=== PATIENT | male | born 2000 | race Caucasian/White ===

== ENCOUNTER → 2021-12-11 | Outpatient (CLI) | payer BC ==
[~2021-12-11] MED LIST: HYDR1TAB94 PO; IBUP400 PO
[2021-12-11 18:11] LABS: BASOPHILS ABSOLUTE AUTO 0.03 K/mm3 (0.00-0.23); BASOPHILS PERCENT AUTO 0 % (0-2); EOSINOPHILS ABSOLUTE AUTO 0.03 K/mm3 (0.00-0.68); EOSINOPHILS PERCENT AUTO 0 % (0-6); Hematocrit 38.2 % (37.0-53.0); Hemoglobin 12.9 g/dL (13.5-17.5); IMMATURE GRAN ABSOLUTE AUTO 0.07 K/mm3 (0.00-0.10); IMMATURE GRAN PERCENT AUTO 0 % (0-1); LYMPHOCYTES ABSOLUTE AUTO 1.08 K/mm3 (0.84-5.20); LYMPHOCYTES PERCENT AUTO 7 % (21-46); MONOCYTES ABSOLUTE AUTO 0.68 K/mm3 (0.16-1.47); MONOCYTES PERCENT AUTO 4 % (4-13); Mean Corpuscular HGB 29.9 pg (26.0-34.0); Mean Corpuscular HGB Conc 33.8 g/dL (31.5-36.5); Mean Corpuscular Volume 89 fL (80-100); NEUTROPHILS ABSOLUTE AUTO 13.74 K/mm3 (1.96-9.15); NEUTROPHILS PERCENT AUTO 88 % (41-73); Platelet Count 294 K/mm3 (150-400); RDW Standard Deviation 39.1 fL (35.1-46.3); Red Blood Cell Count 4.31 M/mm3 (4.30-5.90); White Blood Cell Count 15.63 K/mm3 (4.00-11.30)
[2021-12-11 18:25] LABS: Alanine Aminotransfer (ALT/SGP 14 U/L (12-78); Albumin, Blood 3.9 g/dL (3.4-5.0); Albumin/Globulin Ratio 1.2 (0.8-1.8); Alk Phos 66 U/L (40-126); Anion Gap 10 mmol/L (6-16); Aspartate Aminotrans (AST/SGOT 13 U/L (12-37); Bilirubin, Total 0.8 mg/dL (0.1-1.0); Blood Urea Nitrogen 13 mg/dL (8-24); Bun/Creatinine Ratio 12.9 (12.0-20.0); CO2, Blood 27 mmol/L (21-32); Calcium, Blood 9.1 mg/dL (8.5-10.1); Chloride, Blood 106 mmol/L (98-108); Creatinine, Blood 1.01 mg/dL (0.60-1.20); Globulin, Blood 3.2 g/dL (2.2-4.0); Glomerular Filtration Rate >60 (60-); Glucose, Blood 118 mg/dL (70-99); Potassium, Blood 3.7 mmol/L (3.5-5.5); Sodium, Blood 143 mmol/L (136-145); Total Protein, Blood 7.1 g/dL (6.4-8.2)
== END | disposition home or self-care (01) ==
LOC: LAB 18:06 → LAB SHORT 18:06
PROVIDERS: Physician Assistant
DX: R10.31 Right lower quadrant pain (principal)
CPT/HCPCS: 80053; 85025

== ENCOUNTER 2024-01-03 18:05 | Emergency (ER) | payer BC ==
[~2024-01-03] VITALS: Ht 177.8 cm; Wt 65.8 kg
[2024-01-03 19:36] LABS: BASOPHILS ABSOLUTE AUTO 0.02 K/mm3 (0.00-0.23); BASOPHILS PERCENT AUTO 0 % (0-2); EOSINOPHILS ABSOLUTE AUTO 0.33 K/mm3 (0.00-0.68); EOSINOPHILS PERCENT AUTO 5 % (0-6); Hematocrit 39.4 % (37.0-53.0); Hemoglobin 13.5 g/dL (13.5-17.5); IMMATURE GRAN ABSOLUTE AUTO 0.01 K/mm3 (0.00-0.10); IMMATURE GRAN PERCENT AUTO 0 % (0-1); LYMPHOCYTES ABSOLUTE AUTO 1.38 K/mm3 (0.84-5.20); LYMPHOCYTES PERCENT AUTO 22 % (21-46); MONOCYTES ABSOLUTE AUTO 0.66 K/mm3 (0.16-1.47); MONOCYTES PERCENT AUTO 11 % (4-13); Mean Corpuscular HGB 31.2 pg (26.0-34.0); Mean Corpuscular HGB Conc 34.3 g/dL (31.5-36.5); Mean Corpuscular Volume 91 fL (80-100); Mean Platelet Volume 9.7 fL (9.1-12.4); NEUTROPHILS ABSOLUTE AUTO 3.89 K/mm3 (1.96-9.15); NEUTROPHILS PERCENT AUTO 62 % (41-73); Platelet Count 260 K/mm3 (150-400); RDW Coefficient Variation 12.2 % (11.7-14.2); RDW Standard Deviation 41.1 fL (35.1-46.3); Red Blood Cell Count 4.33 M/mm3 (4.30-5.90); White Blood Cell Count 6.29 K/mm3 (4.00-11.30)
[2024-01-03 19:54] LABS: Albumin, Blood 3.2 g/dL (3.4-5.0); Albumin/Globulin Ratio 0.8 (0.8-1.8); Bilirubin, Total 0.4 mg/dL (0.1-1.0); Bun/Creatinine Ratio 12.5 (12.0-20.0); Calcium, Blood 8.6 mg/dL (8.5-10.1); Creatinine, Blood 0.64 mg/dL (0.60-1.20); Potassium, Blood 3.4 mmol/L (3.5-5.5); Total Protein, Blood 7.2 g/dL (6.4-8.2)
[2024-01-03 20:09] LABS: Influenza A, PCR NEGATIVE (NEGATIVE); Influenza B, PCR NEGATIVE (NEGATIVE); Resp Syncytial Virus, PCR NEGATIVE (NEGATIVE); SARS-Cov-2 (COVID-19) PCR, MMC NEGATIVE (NEGATIVE)
[2024-01-03] MEDS ORDERED: Azithromycin 250 MG Tab PO ONE (20:40)
[2024-01-03] MEDS ORDERED: Ketorolac Tromethamine 15mg Vial IV ONE (20:40)
[2024-01-03] MEDS ORDERED: AZIT250 PO (20:42)
[2024-01-03 20:50] VITALS: BP 115/70
== END 2024-01-03 20:57 | disposition home or self-care (01) ==
LOC: ER 18:05
PROVIDERS: Student in an Organized Health Care Education/Training Program
DX: J18.0 Bronchopneumonia, unspecified organism (principal); G40.909 Epilepsy, unspecified, not intractable, without status epilepticus
CPT/HCPCS: 0241U; 71046; 80053; 85025; 96374; 99283-25; A9270; J1885

== ENCOUNTER 2024-03-10 07:21 | Inpatient (IN) | payer BC ==
[2024-03-10] VITALS (46 sets, daily range): BP systolic 69–123; BP diastolic 45–86
[~2024-03-10] VITALS: Ht 177.8 cm; Wt 71.3 kg
[~2024-03-10 07:21] MED LIST changes: +AZIT250 PO
[2024-03-10] MEDS ORDERED: Naloxone HCl 1MG / ML 2ML SYR ONE (07:33)
[2024-03-10] MEDS ORDERED: Naloxone HCl 1MG / ML 2ML SYR IV ONE (07:35)
[2024-03-10] MEDS ORDERED: Ondansetron HCl 2 MG / ML 2ML Vial ONE (07:38)
[2024-03-10] MEDS ORDERED: Ondansetron HCl 2 MG / ML 2ML Vial IV ONE (07:40)
[2024-03-10] MEDS ORDERED: Droperidol 5 mg/2 ml Vial IV ONE (07:50)
[2024-03-10 07:55] LABS: Calcium, Ionized (POC) 1.04 mmol/L (1.10-1.46); Chloride (POC) 100 mmol/L (98-108); Creatinine (POC) 2.5 mg/dL (0.8-1.3); Glucose (ISTAT POC) 139 mg/dL (70-99); Hemoglobin (POC) 11.9 g/dL (13.5-17.5); Potassium (POC) 4.7 mmol/L (3.5-5.5); Sodium (POC) 133 mmol/L (135-148); Total CO2 (POC) 22 mmol/L (21-32)
[2024-03-10 07:58] LABS: BASOPHILS ABSOLUTE AUTO 0.04 K/mm3 (0.00-0.23); BASOPHILS PERCENT AUTO 0 % (0-2); EOSINOPHILS ABSOLUTE AUTO 0.05 K/mm3 (0.00-0.68); EOSINOPHILS PERCENT AUTO 0 % (0-6); Hematocrit 34.1 % (37.0-53.0); Hemoglobin 11.3 g/dL (13.5-17.5); IMMATURE GRAN PERCENT AUTO 1 % (0-1); LYMPHOCYTES ABSOLUTE AUTO 1.43 K/mm3 (0.84-5.20); LYMPHOCYTES PERCENT AUTO 8 % (21-46); MONOCYTES ABSOLUTE AUTO 0.83 K/mm3 (0.16-1.47); MONOCYTES PERCENT AUTO 5 % (4-13); Mean Corpuscular HGB 30.7 pg (26.0-34.0); Mean Corpuscular HGB Conc 33.1 g/dL (31.5-36.5); Mean Corpuscular Volume 93 fL (80-100); Mean Platelet Volume 10.3 fL (9.1-12.4); NEUTROPHILS ABSOLUTE AUTO 15.76 K/mm3 (1.96-9.15); NEUTROPHILS PERCENT AUTO 87 % (41-73); Platelet Count 188 K/mm3 (150-400); RDW Coefficient Variation 12.5 % (11.7-14.2); Red Blood Cell Count 3.68 M/mm3 (4.30-5.90); White Blood Cell Count 18.21 K/mm3 (4.00-11.30)
[2024-03-10 08:09] LABS: PCO2 Arterial 43.8 mmHg (35-45); PO2 Arterial 46.7 mmHg (80-100); pH Blood Arterial 7.31 (7.35-7.45)
[2024-03-10] MEDS ORDERED: Etomidate 2MG / ML 10ML Vial IV ONE ×2 (08:15→17:15)
[2024-03-10] MEDS ORDERED: Rocuronium Bromide 10 MG/ML 5ML Injection IV ONE ×2 (08:15→17:15)
[2024-03-10 08:16] LABS: Magnesium, Blood 2.1 mg/dL (1.6-2.4)
[2024-03-10 08:17] LABS: Albumin, Blood 3.1 g/dL (3.4-5.0); Albumin/Globulin Ratio 1.2 (0.8-1.8); Bun/Creatinine Ratio 17.7 (12.0-20.0); Calcium, Blood 7.9 mg/dL (8.5-10.1); Creatinine, Blood 2.15 mg/dL (0.60-1.20); Globulin, Blood 2.6 g/dL (2.2-4.0); Potassium, Blood 4.9 mmol/L (3.5-5.5); Total Protein, Blood 5.7 g/dL (6.4-8.2)
[2024-03-10] MEDS ORDERED: CefTRIAXone Sodium 1,000 MG in NS 50 ML IV ONE (08:35)
[2024-03-10] MEDS ORDERED: Azithromycin 500 MG in NS 250 ML IV ONE ×2 (08:35→12:20)
[2024-03-10 08:55] LABS: PCO2 Arterial 41.3 mmHg (35-45); PO2 Arterial 77.3 mmHg (80-100); pH Blood Arterial 7.31 (7.35-7.45)
[2024-03-10 09:23] LABS: Source, Urine Straight Cath
[2024-03-10 09:26] LABS: Appearance, Urine Cloudy (Clear); Bilirubin, Urine Neg (Neg); Blood, Urine 5+ (Neg); Color, Urine Yellow (P-Yellow); Glucose Qualitative, Urine 1+ (Neg); Ketones, Urine 1+ (Neg); Leukocyte Esterase, Urine 1+ (Neg); Nitrite, Urine Neg (Neg); Protein, Urine 2+ (Neg); Urobilinogen, Urine NORM (Normal)
[2024-03-10 09:33] LABS: Calcium Oxalate Crystals Rare /hpf
[2024-03-10 09:38] LABS: Bacteria Many /hpf; Renal Epithelial Few /hpf (0-Rare); Squamous Epithelial Cells Rare /hpf (Few)
[2024-03-10 09:40] LABS: U Amphetamine Screen Not Detected; U Barbituate Screen Not Detected; U Benzodiazapine Screen Not Detected; U Buprenorphine Screen Not Detected; U Cannabinoids Screen Not Detected; U Cocaine Screen Not Detected; U Methadone Screen Not Detected; U Methamphetamine Screen Not Detected; U Opiates Screen Not Detected; U Oxycodone Screen Not Detected; U Phencyclidine Screen Not Detected
[2024-03-10] MEDS ORDERED: Midazolam HCl 1MG / ML 2ML Vial IV ONE ×5 (10:45→17:15)
[2024-03-10] MEDS ORDERED: Ondansetron HCl 2 MG / ML 2ML Vial IV PRN (10:50)
[2024-03-10] MEDS ORDERED: FentaNYL Citrate 50 MCG/ML 2 ML Injection IV PRN ×2 (10:50→14:15)
[2024-03-10] MEDS ORDERED: Lactated Ringer's 1,000 ML IV SCH (10:55)
[2024-03-10] MEDS ORDERED: propofoL 100 ML IV SCH (11:00)
[2024-03-10] MEDS ORDERED: Cefepime HCl 2,000 MG in NS 100 ML IV SCH (11:30)
[2024-03-10] MEDS ORDERED: levETIRAcetam 500 MG in NS 100 ML IV SCH (12:00)
[2024-03-10] MEDS ORDERED: Lactated Ringer's 1,000 ML IV ONE ×2 (12:20→13:20)
--- NOTE | 2024-03-10 12:50 | NUR ---
ADMISSION: Pt admitted to ICU 12 from ED. Upon arrival he was sedated with at RASS +2, attempting to sit up out of bed. PERRLA. Precedex placed on SB and propofol started with good effect. Bilateral wrist restraint in place. Additional IV obtained in right wrist. Antibiotics started after discussion with Dr cSott and luis. IV bolus intiated for hypotension. Dr Scott notified of BP trending down. Pt turned to a hard left turn to allow for postural drainage of right lung. OG placed to LIS. Red frothy sputum from ETT. ETT 8.0, 25 cm at lip. Right lung coarse throughout. Skin pale with trace edema in BLE and periorbital. Thready pulses in all extremities. Poor capillary refil and cool extremities. Temp prob lizama in place draining cloudy, yellow urine. prob lizama in place
[2024-03-10] MEDS ORDERED: Midazolam HCl 1MG / ML 2ML Vial ONE (13:12)
[2024-03-10] MEDS ORDERED: FentaNYL Citrate 50 MCG/ML 2 ML Injection ONE (13:23)
[2024-03-10] MEDS ORDERED: NS 1,000 ML IV SCH (13:30)
[2024-03-10] MEDS ORDERED: FentaNYL Citrate 50 MCG/ML 2 ML Injection IV ONE (13:30)
[2024-03-10] MEDS ORDERED: Midazolam HCl 1MG / ML 2ML Vial IV PRN (14:20)
[2024-03-10] MEDS ORDERED: PRAZ1 PO (15:27)
[2024-03-10] MEDS ORDERED: LEVE500 PO ×2 (15:28→18:12)
[2024-03-10] MEDS ORDERED: BUSPIRONE HCL30 M1 PO (15:28)
[2024-03-10] MEDS ORDERED: QUET200 PO (15:29)
[2024-03-10] MEDS ORDERED: CATAPRES0.1 MG PO (15:30)
[2024-03-10] MEDS ORDERED: DULO60 PO (15:33)
[2024-03-10] MEDS ORDERED: KEPPRA250 M1 PO (15:34)
[2024-03-10] MEDS ORDERED: AMPDEX30CR PO (15:34)
[2024-03-10] MEDS ORDERED: Heparin Sodium,Porcine 5,000 UNIT/0.5 ML SDV SC SCH (16:00)
[2024-03-10] MEDS ORDERED: Phenylephrine HCl 100 MCG/ML-NS 10MLSYR (1MG/10ML) IV ONE (17:15)
[2024-03-10] MEDS ORDERED: Hydrogen Peroxide 1.5 % Solution MT SCH (20:00)
--- NOTE | 2024-03-10 22:42 | NUR ---
ASSUMED CARE CARE WAS ASSUMED OF PT AT 1900, REPORT GIVEN BY ORACIO MAHER. PT INTUBATED AND SEDATED, PROPOFOL GTT INFUSING, SEE FLOWSHEET. PT AWAKENS EASILY TO VOICE, BUT BECOMES EASILY AGITATED ONCE AWAKE. PT DIFFICULT TO CONSOLE AND EVENTUALLY FALLS BACK ASLEEP. WHEN LEFT UNBOTHERED RASS -3, WITH ANY STIMULATION RASS +1. CPOT O AT SHIFT CHANGE. VENT SETTINGS AC/VC 16/450/8/30%, O2 SATS > 95%. CARDIAC MONITORING REFLECTS NSR, HR 80s. SBP 100s, MAP > 65. NS INFUSING AT 150 mL/HR. CVC TO R SUBCLAVIAN, DRESSING C/D/I. PIV TO RAC SL. TEMP BAILEY PATENT AND DRAINING TO GRAVITY. OG SET TO LIS, BROWN/CLEAR FLUID NOTED IN TUBING.
[2024-03-11] VITALS (46 sets, daily range): BP systolic 107–137; BP diastolic 63–97
[2024-03-11] MEDS ORDERED: D5W-1/2NS 1,000 ML IV SCH (01:25)
[2024-03-11 05:29] LABS: BASOPHILS ABSOLUTE AUTO 0.01 K/mm3 (0.00-0.23); BASOPHILS PERCENT AUTO 0 % (0-2); EOSINOPHILS ABSOLUTE AUTO 0.05 K/mm3 (0.00-0.68); EOSINOPHILS PERCENT AUTO 1 % (0-6); Hematocrit 30.3 % (37.0-53.0); Hemoglobin 10.4 g/dL (13.5-17.5); IMMATURE GRAN ABSOLUTE AUTO 0.03 K/mm3 (0.00-0.10); IMMATURE GRAN PERCENT AUTO 0 % (0-1); LYMPHOCYTES ABSOLUTE AUTO 1.19 K/mm3 (0.84-5.20); LYMPHOCYTES PERCENT AUTO 14 % (21-46); MONOCYTES ABSOLUTE AUTO 0.45 K/mm3 (0.16-1.47); MONOCYTES PERCENT AUTO 5 % (4-13); Mean Corpuscular HGB 30.8 pg (26.0-34.0); Mean Corpuscular HGB Conc 34.3 g/dL (31.5-36.5); Mean Corpuscular Volume 90 fL (80-100); Mean Platelet Volume 10.7 fL (9.1-12.4); NEUTROPHILS ABSOLUTE AUTO 7.08 K/mm3 (1.96-9.15); NEUTROPHILS PERCENT AUTO 80 % (41-73); Platelet Count 137 K/mm3 (150-400); RDW Coefficient Variation 12.6 % (11.7-14.2); RDW Standard Deviation 41.1 fL (35.1-46.3); Red Blood Cell Count 3.38 M/mm3 (4.30-5.90); White Blood Cell Count 8.81 K/mm3 (4.00-11.30)
[2024-03-11 05:54] LABS: Alanine Aminotransfer (ALT/SGP 217 U/L (12-78); Albumin, Blood 2.6 g/dL (3.4-5.0); Albumin/Globulin Ratio 1.1 (0.8-1.8); Alk Phos 62 U/L (50-136); Anion Gap 9 mmol/L (3-11); Aspartate Aminotrans (AST/SGOT 566 U/L (12-37); Bilirubin, Total 1.5 mg/dL (0.1-1.0); Blood Urea Nitrogen 14 mg/dL (8-24); Bun/Creatinine Ratio 17.3 (12.0-20.0); CO2, Blood 25 mmol/L (21-32); Calcium, Blood 7.9 mg/dL (8.5-10.1); Chloride, Blood 114 mmol/L (98-108); Creatinine, Blood 0.81 mg/dL (0.60-1.20); Globulin, Blood 2.3 g/dL (2.2-4.0); Glomerular Filtration Rate 128 (60-); Glucose, Blood 109 mg/dL (70-99); Potassium, Blood 3.5 mmol/L (3.5-5.5); Sodium, Blood 144 mmol/L (136-145); Total Protein, Blood 4.9 g/dL (6.4-8.2); Vancomycin, Random 4.8 ug/mL
--- NOTE | 2024-03-11 05:59 | NUR ---
SHIFT SUMMARY PT REMAINS INTUBATED AND SEDATED, PROPOFOL GTT INFUSING, SEE FLOWSHEET. PT'S AGITATION INCREASING T/O SHIFT; BITING DOWN ON ETT, PULLING AGAINST RESTRAINTS, ATTEMPTING TO SIT UP, KICKING LEGS IN BED. MEDICATED PT PER EMAR T/O SHIFT WELL INCREASE SEDATION. RASS -3, CPOT 0 AT THIS TIME. RESTRAINTS REMAIN IN PLACE. PT NOT FOLLOWING COMMANDS AT THIS TIME AND IS DIFFICULT AT TIMES TO CONSOLE WHEN AGITATED. VENT SETTINGS AC/VC 16/450/8/30%, O2 SATS > 95%. WHEN PT AGITATED O2 SATS DROP TO 80s WITH INCREASED HR. CARDIAC MONITORING REFLECTS NSR AT THIS TIME, HR 80s. SBP 110s. OG TO LIS, 200 BROWN/CLEAR OUTPUT THIS SHIFT. TEMP BAILEY PATENT AND DRAINING TO GRAVITY, 1800 mL URINE OUT THIS SHIFT. PT AFEBRILE. CVC TO R SUBCLAVIAN PATENT, SMALL AMOUNT OF BLOOD NOTED AT INSERTION SITE, DRESSING REMAINS C/D/I. PT'S CBG LOWER FROM PREVIOUS CHECKS THIS SHIFT SO PT SWITCHED TO D5 1/2 NS @ 100 FOR 1 BAG BY HOSPITALIST AND THEN PLAN TO RESTART NS @ 150.
[2024-03-11] MEDS ORDERED: Pantoprazole Sodium 40 MG Injection IV SCH (06:00)
--- NOTE | 2024-03-11 07:00 | NUR ---
ASSUME CARE: I have assume care of this patient.
[2024-03-11] MEDS ORDERED: Cefepime HCl 2,000 MG in NS 100 ML IV SCH (08:00)
[2024-03-11] MEDS ORDERED: NS 250 ML IV PRN (08:20)
[2024-03-11] MEDS ORDERED: Heparin Sodium,Porcine 5,000 UNIT/0.5 ML SDV SC SCH (09:00)
--- NOTE | 2024-03-11 10:38 | NUR ---
SEDATION VACATION: Pt able to track nurse and follow commands. Positive clonus and negative babinski in bilateral feet
[2024-03-11] MEDS ORDERED: Sertraline HCl 50 MG Tab PT SCH (11:00)
[2024-03-11] MEDS ORDERED: NS 1,000 ML IV SCH (12:00)
[2024-03-11] MEDS ORDERED: Vancomycin HCL 1,250 MG in NS 250 ML IV SCH (17:00)
--- NOTE | 2024-03-11 18:27 | NUR ---
SHIFT SUMMARY: Tube feeds initiated today. Blood sugars stable. Family at bedside throughout the day receiving updates. Vent settings AC/VC 16/450/8/30%. Precedex and propofol infusing for sedation. Two doses of PRN versed given this shift.
[2024-03-11] MEDS ORDERED: QUEtiapine Fumarate 50 MG TAB PT SCH (21:00)
[2024-03-11] MEDS ORDERED: levETIRAcetam 1,000 MG in NS 100 ML IV SCH (21:00)
--- NOTE | 2024-03-11 21:33 | NUR ---
ASSUMED CARE CARE WAS ASSUMED OF PT, REPORT GIVEN BY ORACIO MAHER. PT INTUBATED AND SEDATED, PROPOFOL AND PRECEDEX GTT INFUSING, SEE FLOWSHEET. RASS -3 WHEN LEFT UNBOTHERED BUT PT AWAKENS EASY TO VERBAL AND PHYSICAL STIMULI AND THEN WILL HAVE RASS +1, PT PULLS AGAINST RESTRAINTS WEAKLY AND MOVES HEAD BACK AND FORTH. PT CALM WHEN LEFT UNBOTHERED, CPOT 0-1. PT IN BILATERAL SOFT WRIST RESTRAINTS FOR SAFETY. VENT SETTINGS AC/VC 16/450/8/30%, PT SYCHRONOUS WITH VENT. O2 SATS > 95%. CARDIAC MONITORING REFLECTS NSR, HR 70s. SBP 120s. D5 1/2 NS INFUSING AT 100. CVC TO R SUBCLAVIAN PATENT, DRESSING C/D/I. TEMP BAILEY PATENT AND DRAINING TO GRAVITY, PT AFEBRILE. PIVOT 1.5 INFUSING THROUGH OG AT 10 mL/HR WITH 30 mL Q4HR FLUSHES.
[2024-03-12] VITALS (20 sets, daily range): BP systolic 125–143; BP diastolic 63–109
[2024-03-12 06:03] LABS: BASOPHILS ABSOLUTE AUTO 0.02 K/mm3 (0.00-0.23); BASOPHILS PERCENT AUTO 0 % (0-2); EOSINOPHILS ABSOLUTE AUTO 0.23 K/mm3 (0.00-0.68); EOSINOPHILS PERCENT AUTO 3 % (0-6); Hematocrit 29.8 % (37.0-53.0); Hemoglobin 10.4 g/dL (13.5-17.5); IMMATURE GRAN ABSOLUTE AUTO 0.02 K/mm3 (0.00-0.10); IMMATURE GRAN PERCENT AUTO 0 % (0-1); LYMPHOCYTES ABSOLUTE AUTO 0.87 K/mm3 (0.84-5.20); LYMPHOCYTES PERCENT AUTO 12 % (21-46); MONOCYTES ABSOLUTE AUTO 0.39 K/mm3 (0.16-1.47); MONOCYTES PERCENT AUTO 5 % (4-13); Mean Corpuscular HGB 30.4 pg (26.0-34.0); Mean Corpuscular HGB Conc 34.9 g/dL (31.5-36.5); Mean Corpuscular Volume 87 fL (80-100); Mean Platelet Volume 10.5 fL (9.1-12.4); NEUTROPHILS ABSOLUTE AUTO 5.78 K/mm3 (1.96-9.15); NEUTROPHILS PERCENT AUTO 79 % (41-73); Platelet Count 145 K/mm3 (150-400); RDW Coefficient Variation 12.4 % (11.7-14.2); RDW Standard Deviation 39.8 fL (35.1-46.3); Red Blood Cell Count 3.42 M/mm3 (4.30-5.90); White Blood Cell Count 7.31 K/mm3 (4.00-11.30)
--- NOTE | 2024-03-12 06:05 | NUR ---
SHIFT SUMMARY PT REMAINS INTUBATED AND SEDATED. PROPOFOL AND PRECEDEX GTT INFUSING, SEE FLOWSHEET. PT REMAINS UNABLE TO FOLLOW COMMANDS BUT AWAKENS TO VERBAL AND PHYSICAL STIMULI. DURING BEDBATH TONIGHT PT REMAINED CALM AND WHEN HE WOKE UP HE WAS ABLE TO MAKE EYE CONTACT WITH THIS RN FOR < 10 SECONDS. RASS -3 AT THIS TIME, CPOT 0. PT REMAINS IN BILATERAL SOFT WRIST RESTRAINTS FOR SAFETY. VENT SETTINGS UNCHANGED THIS SHIFT; AC/VC 16/450/8/30%. PT TOLERATING WELL, SYNCHRONOUS WITH VENTILATOR AND O2 SATS > 95%. CARDIAC MONITORING REFLECTS NSR, HR 70s AT THIS TIME, SBP 120s. CVC TO RIJ PATENT, DRESSING C/D/I. D5 1/2 NS INFUSING, BLOOD SUGARS STABLE THIS SHIFT. TF INFUSING AT 10 mL/HR WITH 30 mL Q4 FLUSHES THROUGH OG TUBE. RESIDUALS CHECKED THIS SHIFT PER ORDERS, 100 mL. TEMP BAILEY PATENT AND DRAINING TO GRAVITY, PT HAD 3000 mL OF URINE OUT THIS SHIFT. PT AFEBRILE.
[2024-03-12 06:18] LABS: Albumin, Blood 2.5 g/dL (3.4-5.0); Anion Gap 8 mmol/L (3-11); Blood Urea Nitrogen 5 mg/dL (8-24); Bun/Creatinine Ratio 8.2 (12.0-20.0); CO2, Blood 24 mmol/L (21-32); Calcium, Blood 7.8 mg/dL (8.5-10.1); Chloride, Blood 116 mmol/L (98-108); Creatinine, Blood 0.61 mg/dL (0.60-1.20); Glomerular Filtration Rate 139 (60-); Glucose, Blood 104 mg/dL (70-99); Phosphorus, Blood 1.9 mg/dL (2.5-4.9); Potassium, Blood 2.9 mmol/L (3.5-5.5); Sodium, Blood 145 mmol/L (136-145)
[2024-03-12] MEDS ORDERED: Potassium Phosphate Dibasic 30 MM in Dextrose 5% 500 ML IV ONE (06:55)
--- NOTE | 2024-03-12 07:52 | NUR ---
CARE OF PT ASSUMED AT 0700, BEDSIDE REPORT TAKEN. PT ON PROPOFOL AT 40MCG AND PRECEDEX AT 0.5MCG FOR VENT TOLERANCE. AC/VC 16/450/30%/8. PT INITIALLY RESTLESS, SLIGHTLY AGITATED, RASS +2, COUGHING AND GAGGING ON ETT. PT ABLE TO MAKE EYE CONTACT WHEN NAME SPOKEN, ABLE TO PRUNER HAND TO COMMAND. FINE TREMORS NOTED TO UPPER BODY AND ARMS WHEN AGITATED. VERSED 2MG GIVEN W GOOD EFFECT. TUBE FEEDS AT TRICKLE RATE OF 10. KPHOS 30MMOL INFUSING. PT'S GRANDFATHER AT BEDSIDE.
[2024-03-12 08:20] LABS: Vancomycin, Trough 16.7 ug/mL (5.0-10.0)
[2024-03-12] MEDS ORDERED: Bisacodyl 10 MG Supp PR PRN (09:25)
[2024-03-12] MEDS ORDERED: Magnesium Hydroxide Conc 10 ML UDC PT PRN (09:25)
[2024-03-12] MEDS ORDERED: Docusate Sodium 100 MG UDC PT PRN (09:25)
--- NOTE | 2024-03-12 09:45 | NUR ---
DR SEGURA IN TO SEE PT; FULL UPDATE GIVEN. PROPOFOL AND PRECEDEX PLACED ON STANDBY. PT RESTING ABLE TO NOD HEAD APPRORIATELY. RT PLACED PT ON SPONT BREATHING TRIAL 05/18
--- NOTE | 2024-03-12 10:05 | NUR ---
PT EXTUBATED TO 2L O2 VIA N/C AT [address] SEGURA. PT DROWSY BUT ABLE TO ANSWER QUESTIONS APPROPRIATELY. I SPOKE W PT PRIVATELY; PT DENIES USING ANY SUBSTANCES FOR OVER 4 MONTHS AND STATES HE WAS TREATED FOR PNEUMONIA ONE WEEK AGO AT AN URGENT CARE, PT STATES HE HAD BEEN VOMITING WELL.
--- NOTE | 2024-03-12 11:16 | NUR ---
pt oob to chair. sba to bathroom. pt had xlarge soft bm. Very unsteady gait. IS and Flutter valve given with instructions. Plan: Michael central line and alda.
[2024-03-12] MEDS ORDERED: Potassium Chloride 40 MEQ in NS 250 ML IV ONE (13:00)
[2024-03-12] MEDS ORDERED: Lactated Ringer's 1,000 ML IV SCH (15:20)
--- NOTE | 2024-03-12 15:21 | NUR ---
CALL PLACED TO DR SEGURA REGARDING 5100CC URINE OUTPUT THIS SHIFT. LR ORDERED AT 150CC/HR. CHEM TO BE REPEATED 1HR AFTER K+ INFUSED.
--- NOTE | 2024-03-12 17:48 | NUR ---
PT EXTUBATED EARLIER THIS SHIFT, SATS HAVE BEEN >95% ON RA T/O SHIFT. PT OOB TO CHAIR FOR SEVERAL HOURS TODAY. PT USING IS/FLUTTER QHR. POOR APPETITE. PT'S U/O HAS BEEN OVER 5L TODAY; LR STARTED AT 150CC/HR. CHEM TO BE REPEATED. LEO MORGAN.
[2024-03-12] MEDS ORDERED: Nicotine 21 MG PATCH TOP SCH (18:00)
[2024-03-12 18:48] LABS: Bun/Creatinine Ratio 6.4 (12.0-20.0); Calcium, Blood 8.4 mg/dL (8.5-10.1); Creatinine, Blood 0.62 mg/dL (0.60-1.20); Magnesium, Blood 1.9 mg/dL (1.6-2.4); Phosphorus, Blood 2.8 mg/dL (2.5-4.9); Potassium, Blood 3.3 mmol/L (3.5-5.5)
[2024-03-12] MEDS ORDERED: Potassium Chloride 20 MEQ TabCR PO ONE ×2 (19:40→22:00)
[2024-03-12] MEDS ORDERED: DULoxetine HCL 60 MG Capsule DR PO SCH (21:00)
[2024-03-12] MEDS ORDERED: BusPIRone HCl 5 MG Tab PO SCH (21:00)
--- NOTE | 2024-03-12 21:00 | NUR ---
ASSUMED CARE CARE WAS ASSUMED OF PT AT 1900, REPORT GIVEN BY RADHA MAHER. PT A/O X4, ABLE TO ANSWER QUESTIONS APPROPRIATELY AND USE CALL LIGHT APPROPRIATELY. PT MILDY ANXIOUS, BUT IS COOPERATIVE WITH CARE. PT ON RA, O2 SATS > 95%. CARDIAC MONITORING REFLECTS NSR, HR 80s. SBP 130s. LR INFUSING PER EMAR. CVC TO R SUBCLAVIAN PATENT, PLAN TO REMOVE THIS SHIFT D/T NO LONGER NEEDED. PIV TO JAMES AND RFA, SL. PT ABLE TO USE URINAL AND REPOSITION INDEPENDENTLY.
[2024-03-12] MEDS ORDERED: QUEtiapine Fumarate 200 MG Tab PO ONE (22:35)
[2024-03-12] MEDS ORDERED: QUEtiapine Fumarate 50 MG TAB PO ONE (23:00)
[2024-03-13] VITALS (7 sets, daily range): BP systolic 122–144; BP diastolic 75–105
[2024-03-13 03:12] LABS: BASOPHILS ABSOLUTE AUTO 0.02 K/mm3 (0.00-0.23); BASOPHILS PERCENT AUTO 0 % (0-2); EOSINOPHILS ABSOLUTE AUTO 0.13 K/mm3 (0.00-0.68); EOSINOPHILS PERCENT AUTO 2 % (0-6); Hematocrit 31.6 % (37.0-53.0); Hemoglobin 11.1 g/dL (13.5-17.5); IMMATURE GRAN ABSOLUTE AUTO 0.03 K/mm3 (0.00-0.10); IMMATURE GRAN PERCENT AUTO 0 % (0-1); LYMPHOCYTES ABSOLUTE AUTO 1.57 K/mm3 (0.84-5.20); LYMPHOCYTES PERCENT AUTO 20 % (21-46); MONOCYTES ABSOLUTE AUTO 0.64 K/mm3 (0.16-1.47); MONOCYTES PERCENT AUTO 8 % (4-13); Mean Corpuscular HGB 30.3 pg (26.0-34.0); Mean Corpuscular HGB Conc 35.1 g/dL (31.5-36.5); Mean Corpuscular Volume 86 fL (80-100); NEUTROPHILS ABSOLUTE AUTO 5.45 K/mm3 (1.96-9.15); NEUTROPHILS PERCENT AUTO 69 % (41-73); Platelet Count 182 K/mm3 (150-400); RDW Coefficient Variation 12.4 % (11.7-14.2); Red Blood Cell Count 3.66 M/mm3 (4.30-5.90); White Blood Cell Count 7.84 K/mm3 (4.00-11.30)
[2024-03-13 03:28] LABS: Anion Gap 9 mmol/L (3-11); Blood Urea Nitrogen 3 mg/dL (8-24); Bun/Creatinine Ratio 5.6 (12.0-20.0); CO2, Blood 25 mmol/L (21-32); Calcium, Blood 8.3 mg/dL (8.5-10.1); Chloride, Blood 114 mmol/L (98-108); Creatinine, Blood 0.54 mg/dL (0.60-1.20); Glomerular Filtration Rate 145 (60-); Glucose, Blood 93 mg/dL (70-99); Phosphorus, Blood 2.6 mg/dL (2.5-4.9); Potassium, Blood 3.5 mmol/L (3.5-5.5); Sodium, Blood 144 mmol/L (136-145)
--- NOTE | 2024-03-13 05:13 | NUR ---
SHIFT SUMMARY PT REMAINS A/O X4, NO ACUTE CHANGES THIS SHIFT. PT SBA TO BATHROOM. PT REMAINS ON RA, O2 SATS > 95%. CARDIAC MONITORING REFLECTS NSR, HR 80s. SBP 130s. PT'S HR WILL TACHY TO 130s WITH ACTIVITY/GETTING UP TO USE URINAL INDEPENDENTLY. PT HAS BEEN ABLE TO INDEPENDENTLY REPOSITION. CVC TO R SUBCLAVIAN REMOVED THIS SHIFT, DRESSING C/D/I WITH NO COMPLICATIONS. PT TOLERATED WELL. PT TOLERATING PO INTAKE. LR INFUSING @ 150 mL/HR. NS TKO INFUSING.
[2024-03-13 08:24] LABS: Vancomycin, Trough 15.9 ug/mL (5.0-10.0)
[2024-03-13] MEDS ORDERED: Thiamine HCl 100 MG Tab PT SCH (09:00)
--- NOTE | 2024-03-13 09:24 | NUR ---
CARE OF PT ASSUMED AT 0700. PT AWAKE AND ALERT, DENIES C/P PAIN/SOB. SATS 97% ON RA. PT SBA TO SHOWER THIS AM. LR AT 150CC/HR. DR HOBBS IN TO SEE PT THIS AM. PT NOW MEDICAL STATUS W/O TELE. PT'S FATHER AND GRANDFATHER AT BEDSIDE.
--- NOTE | 2024-03-13 10:43 | NUR ---
"Spiritual Care | Pt. request Pt. is awake in bed and welcomes my visit. Pt. is young, and Pt. is pleasant. Facilitate a life review and listen with interest and empathy. considered briefly matters of gibson and belief. Pt. verbalized that gibson has not been a present part of his life but he respected his families beliefs. Pt. displayed evidence of awareness, engagement, and verbalized of a family history of heart disease. Pt. verbalized gratitude for the spiritual care visit and welcomed this highway maintenance supervisor to return."
[2024-03-13] MEDS ORDERED: Potassium Chloride 20 MEQ TabCR PO ONE (10:50)
[2024-03-13 11:31] LABS: Bun/Creatinine Ratio 7.5 (12.0-20.0); Creatinine, Blood 0.53 mg/dL (0.60-1.20); Potassium, Blood 3.8 mmol/L (3.5-5.5)
[2024-03-13 11:51] LABS: Source, Urine Clean Catch
[2024-03-13 12:12] LABS: Bilirubin, Urine Neg (Neg); Blood, Urine Neg (Neg); Glucose Qualitative, Urine Neg (Neg); Ketones, Urine 2+ (Neg); Leukocyte Esterase, Urine Neg (Neg); Nitrite, Urine Neg (Neg); Protein, Urine Neg (Neg); Urobilinogen, Urine NORM (Normal)
[2024-03-13 12:14] LABS: Appearance, Urine Clear (Clear); Color, Urine Yellow (P-Yellow)
[2024-03-13 12:22] LABS: Creatinine, Urine Random 23.1 mg/dL (27.00-270.00); Potassium, Urine, Random 33.6 mmol/L (12.0-75.0)
--- NOTE | 2024-03-13 14:04 | NUR ---
REPORT GIVEN TO [facility] RN. PT TRANSFERED TO [facility] VIA W/C IN STABLE CONDITION.
[2024-03-13] MEDS ORDERED: Ketorolac Tromethamine 15mg Vial IV PRN (18:10)
--- NOTE | 2024-03-13 19:40 | NUR ---
SHIFT SUMMARY PATIENT ARRIVED TO UNIT AROUND 1415. AOX4 AND COOPERATIVE WITH CARE. HE DOES C/O SOME BACK PAIN AND REPORTS FALLING TWICE AT HOME. CALL PLACED TO DR HOBBS, TORADOL ORDERED FOR BACK PAIN. PATIENT UP AD AYANA IN ROOM TO BATHROOM, STRICT I&OS. POOR APPETITE. BED IN LOW POSITION, CALL LIGHT IN REACH.
[2024-03-13] MEDS ORDERED: QUEtiapine Fumarate 200 MG Tab PO SCH (21:00)
[2024-03-14] MEDS ORDERED: Gabapentin 300 MG Cap PO PRN (01:50)
[2024-03-14 04:56] VITALS: BP 133/87
[2024-03-14 05:23] LABS: BASOPHILS ABSOLUTE AUTO 0.01 K/mm3 (0.00-0.23); BASOPHILS PERCENT AUTO 0 % (0-2); EOSINOPHILS ABSOLUTE AUTO 0.28 K/mm3 (0.00-0.68); EOSINOPHILS PERCENT AUTO 5 % (0-6); Hematocrit 33.6 % (37.0-53.0); Hemoglobin 11.8 g/dL (13.5-17.5); IMMATURE GRAN ABSOLUTE AUTO 0.02 K/mm3 (0.00-0.10); IMMATURE GRAN PERCENT AUTO 0 % (0-1); LYMPHOCYTES ABSOLUTE AUTO 1.63 K/mm3 (0.84-5.20); LYMPHOCYTES PERCENT AUTO 27 % (21-46); MONOCYTES ABSOLUTE AUTO 0.75 K/mm3 (0.16-1.47); MONOCYTES PERCENT AUTO 12 % (4-13); Mean Corpuscular HGB 30.6 pg (26.0-34.0); Mean Corpuscular HGB Conc 35.1 g/dL (31.5-36.5); Mean Corpuscular Volume 87 fL (80-100); Mean Platelet Volume 9.7 fL (9.1-12.4); NEUTROPHILS ABSOLUTE AUTO 3.39 K/mm3 (1.96-9.15); NEUTROPHILS PERCENT AUTO 56 % (41-73); Platelet Count 202 K/mm3 (150-400); RDW Coefficient Variation 12.7 % (11.7-14.2); RDW Standard Deviation 39.5 fL (35.1-46.3); Red Blood Cell Count 3.86 M/mm3 (4.30-5.90); White Blood Cell Count 6.08 K/mm3 (4.00-11.30)
[2024-03-14 05:39] LABS: Albumin, Blood 3.3 g/dL (3.4-5.0); Anion Gap 11 mmol/L (3-11); Blood Urea Nitrogen 7 mg/dL (8-24); Bun/Creatinine Ratio 12.6 (12.0-20.0); CO2, Blood 22 mmol/L (21-32); Calcium, Blood 8.8 mg/dL (8.5-10.1); Chloride, Blood 114 mmol/L (98-108); Creatinine, Blood 0.55 mg/dL (0.60-1.20); Glomerular Filtration Rate 144 (60-); Glucose, Blood 96 mg/dL (70-99); Potassium, Blood 3.5 mmol/L (3.5-5.5); Sodium, Blood 143 mmol/L (136-145)
--- NOTE | 2024-03-14 06:15 | NUR ---
vitals stable overnight. pt requested gabapentin for leg and back pain, stated he takes this at home. MD was notifed and new order recieved. See MAr. no confusion noted overnight. pt makes needs known.
[2024-03-14 07:51] VITALS: BP 137/90
[2024-03-14 15:32] VITALS: BP 145/101
[2024-03-14 15:37] VITALS: BP 140/93
[2024-03-14 19:10] VITALS: BP 139/97
--- NOTE | 2024-03-14 19:36 | NUR ---
SHIFT [place] PATIENT WITH NO ACUTE EVENTS DURING SHIFT. HE IS UP AD AYANA WALKING HALLS INDEPENDENT, DENIES SHORTNESS OF BREATH. BED IN LOW POSITION, CALL LIGHT IN REACH. PATIENT ABLE TO MAKE NEEDS KNOWN.
[2024-03-15 02:58] VITALS: BP 110/84
--- NOTE | 2024-03-15 04:51 | NUR ---
SHIFT SUMMARY PT A&OX4 AND PLEASANT. NO C/O PAIN. DENIES FEELING SOB. CONTINUING IV ABX. VSS. PT ABLE TO SLEEP MOST OF THE NIGHT. BED IN LOWEST POSITION AND CALL LIGHT IN REACH.
[2024-03-15 07:14] VITALS: BP 148/94
[2024-03-15] MEDS ORDERED: NICO21TP TOP (10:59)
[2024-03-15] MEDS ORDERED: SULTRIDS PO (11:00)
[2024-03-15] MEDS ORDERED: VISBIOME 112.51 EACH PO (11:00)
--- NOTE | 2024-03-15 12:51 | NUR ---
PT AOX4 AND COOPERATIVE OF CARE NOT DISTRESS NOTED. PT DISCHARGED AT 1125 WITH GRANDFATHER TO TRANSPORT. EDUCATION ON NICOTINE CESSATION WAS GIVEN PT STATED HE UNDERSTOOD. PAPERWORK REVIEWED AND EDUCATIONAL INFO SENT. PT INSTRUCTED TO SET UP PRIMARY CARE DOCTOR. PERSONAL BELONGING COLLECTED AND PT AMBULATED OUT ON DISCHARE.
== END 2024-03-15 11:29 | disposition home or self-care (01) | DRG 871 ==
LOC: ER 07:21 → MEDS 10:47 → ICUE 10:47 → MEDS 03-13 14:04
PROVIDERS: Internal Medicine Critical Care Medicine; Student in an Organized Health Care Education/Training Program; ADMIT Family Medicine
PROC: 5A1945Z Respiratory Ventilation, 24-96 Consecutive Hours (ICD-10-PCS; principal; 2024-03-10)
PROC: 0BH17EZ Insertion of Endotracheal Airway into Trachea, Via Natural or Artificial Opening (ICD-10-PCS; 2024-03-10)
PROC: 0DH67UZ Insertion of Feeding Device into Stomach, Via Natural or Artificial Opening (ICD-10-PCS; 2024-03-10)
PROC: 02HV33Z Insertion of Infusion Device into Superior Vena Cava, Percutaneous Approach (ICD-10-PCS; 2024-03-10)
PROC: 4A033R1 Measurement of Arterial Saturation, Peripheral, Percutaneous Approach (ICD-10-PCS; 2024-03-10)
DX: A41.01 Sepsis due to Methicillin susceptible Staphylococcus aureus (principal); G92.8 Other toxic encephalopathy; J18.9 Pneumonia, unspecified organism; R65.21 Severe sepsis with septic shock; J96.01 Acute respiratory failure with hypoxia; E87.20 Acidosis, unspecified; N17.9 Acute kidney failure, unspecified; Z59.00 Homelessness unspecified; Z59.02 Unsheltered homelessness; F17.210 Nicotine dependence, cigarettes, uncomplicated; D64.9 Anemia, unspecified; G40.909 Epilepsy, unspecified, not intractable, without status epilepticus; F31.9 Bipolar disorder, unspecified; F90.9 Attention-deficit hyperactivity disorder, unspecified type; Z88.0 Allergy status to penicillin; Z91.018 Allergy to other foods; F11.10 Opioid abuse, uncomplicated; Z87.442 Personal history of urinary calculi; Z98.890 Other specified postprocedural states; Z79.899 Other long term (current) drug therapy
CPT/HCPCS: 36415; 36556; 36600; 51702; 70450; 71045; 80047; 80048; 80053; 80069; 80202; 81001; 81003; 82436; 82570; 82803; 82947; 83605; 83735; 83930; 83935; 84100; 84132; 84133; 84145; 84300; 85014; 85025; 87040; 87070; 87077; 87086; 87147; 87186; 87205; 93005; 93010; 94002; 94003; 94762; 96365-59; 96366-59; 96375-59; 99291-25; 99292; A9270; C1751; C9113; J0456; J0692; J0696; J1644; J1790; J1885; J1953; J2250; J2310; J2371; J2405; J2704; J3010; J3370; J3480; J7030; J7042; J7050; J7060; J7120

== ENCOUNTER → 2024-09-04 | Outpatient (CLI) | payer BC ==
[~2024-09-04] MED LIST changes: +AMPDEX30CR PO; +BUSPIRONE HCL30 M1 PO; +CATAPRES0.1 MG PO; +DULO60 PO; +KEPPRA250 M1 PO; +LEVE500 PO; +NICO21TP TOP; +PRAZ1 PO; +QUET200 PO; +SULTRIDS PO; +VISBIOME 112.51 EACH PO
[2024-09-04 16:12] LABS: BASOPHILS ABSOLUTE AUTO 0.02 K/mm3 (0.00-0.23); BASOPHILS PERCENT AUTO 0 % (0-2); EOSINOPHILS ABSOLUTE AUTO 0.14 K/mm3 (0.00-0.68); EOSINOPHILS PERCENT AUTO 3 % (0-6); Hematocrit 38.5 % (37.0-53.0); Hemoglobin 13.2 g/dL (13.5-17.5); IMMATURE GRAN ABSOLUTE AUTO 0.01 K/mm3 (0.00-0.10); IMMATURE GRAN PERCENT AUTO 0 % (0-1); LYMPHOCYTES ABSOLUTE AUTO 2.05 K/mm3 (0.84-5.20); LYMPHOCYTES PERCENT AUTO 42 % (21-46); MONOCYTES ABSOLUTE AUTO 0.41 K/mm3 (0.16-1.47); MONOCYTES PERCENT AUTO 8 % (4-13); Mean Corpuscular HGB Conc 34.3 g/dL (31.5-36.5); Mean Corpuscular Volume 85 fL (80-100); NEUTROPHILS ABSOLUTE AUTO 2.24 K/mm3 (1.96-9.15); NEUTROPHILS PERCENT AUTO 46 % (41-73); Platelet Count 349 K/mm3 (150-400); RDW Standard Deviation 36.5 fL (35.1-46.3); Red Blood Cell Count 4.55 M/mm3 (4.30-5.90); White Blood Cell Count 4.87 K/mm3 (4.00-11.30)
[2024-09-04 17:28] LABS: Albumin, Blood 4.2 g/dL (3.4-5.0); Albumin/Globulin Ratio 1.2 (0.8-1.8); Bilirubin, Total 1.3 mg/dL (0.1-1.0); Bun/Creatinine Ratio 13.6 (12.0-20.0); Calcium, Blood 9.6 mg/dL (8.5-10.1); Creatinine, Blood 0.88 mg/dL (0.60-1.20); Globulin, Blood 3.4 g/dL (2.2-4.0); Potassium, Blood 3.4 mmol/L (3.5-5.5); Thyroid Stimulating Hormone 1.89 uIU/mL (0.360-4.800); Total Protein, Blood 7.6 g/dL (6.4-8.2)
== END ==
LOC: LAB SHORT 14:26 → LAB 14:26
DX: I95.89 Other hypotension (principal)
CPT/HCPCS: 80053; 84443; 85025